=== PATIENT | female | born 1985 | race Caucasian/White ===

== ENCOUNTER 2017-02-20 20:43 | Emergency (ER) | payer SELFPAY ==
[2017-02-20] MEDS ORDERED: LIDOCAINE 2%/ EPI 1:200,000 - 20 ML VIAL SUBCUT ONE (21:15)
[2017-02-20] MEDS ORDERED: BACITRACIN 0.9 GM PACKET OINT TOPICAL SCH (22:15)
--- NOTE | 2017-02-20 22:26 | DI ---
CT HEAD SCAN WITHOUT IV CONTRAST, 02/20/2017 9:49 PM : Clinical History: Head trauma. Headache. Previous Exam: None at this facility. Scans are obtained from the foramen magnum to the vertex without IV contrast. The 4th, 3rd, and lateral ventricles are of normal size, shape, position, and contour for the patient 's age. On axial slice 21 of 29, there are areas of punctate increased density at the posterior parie dia region of the left cerebral hemisphere. A contrecoup subarachnoid or even intracerebral hemorrhag e cannot be excluded and an MRI scan is recommended for further evaluation. No other focus of abnorma lly increased or decreased density is identified. There is no atrophy present. There are no extracere bral mantles or shift of the midline structures. Bone window evaluation is normal. The paranasal sinu ses are normal. There is a hematoma involving the scalp along the right temporal parietal region. Gas bubbles are present indicating a laceration is present as well. READIN. There is a linear focus of hyperintensity in the left cerebral hemisphere in the posterior pariet al region near the parieto-occipital junction. This is quite subtle, but an acute subarachnoid hemorr kady or even punctate intracerebral hemorrhage cannot be excluded and an MRI scan is recommended for followup. The remainder of the examination is normal. 2. There is a right-sided hematoma in the scalp with presence of gas bubbles indicating a laceration is present.
[2017-02-20] MEDS ORDERED: HYDROcodone-APAP 7.5 MG-325 MG TABLET PO ONE (22:49)
[2017-02-20] MEDS ORDERED: MORPHINE SULFATE 4 MG/1 ML IVP ONE (23:08)
[2017-02-20] MEDS ORDERED: NORMAL SALINE 10 ML SYRINGE FLUSH IVP PRN (23:08)
[2017-02-20] MEDS ORDERED: ONDANSETRON 4 MG/2 ML VIAL IVP ONE (23:08)
[2017-02-20] MEDS ORDERED: Sodium Chloride 0.9% 1,000 ML PRIMARY IV ONE (23:09)
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
[2017-02-21 02:44] VITALS: RESP 16; TEMP 97.6
== END 2017-02-21 00:05 | disposition short-term general hospital (02) ==
LOC: ER 20:43
DX: S06.6X0A Traumatic subarachnoid hemorrhage without loss of consciousness, initial encounter (principal); S06.0X0A Concussion without loss of consciousness, initial encounter; R51 Headache; R42 Dizziness and giddiness; R41.0 Disorientation, unspecified; S00.03XA Contusion of scalp, initial encounter; S01.312A Laceration without foreign body of left ear, initial encounter; Y04.2XXA Assault by strike against or bumped into by another person, initial encounter
CPT/HCPCS: 12002; 70450; 96374; 96375; 99283; J2270; J2405; J7030